=== PATIENT | male | born 1995 | race Hispanic/Latino ===

== ENCOUNTER 2017-12-15 09:30 | Emergency (ER) | payer SELFPAY | END 2017-12-15 10:13 | disposition home or self-care (01) | LOC: EDH 09:30 | DX: S40.011A Contusion of right shoulder, initial encounter (principal); X58.XXXA Exposure to other specified factors, initial encounter; Y93.89 Activity, other specified; Y92.89 Other specified places as the place of occurrence of the external cause; Y99.8 Other external cause status | CPT/HCPCS: 99281 ==

== ENCOUNTER 2021-04-14 00:08 | Emergency (ER) | payer OTHER ==
[~2021-04-14] VITALS: Ht 172.7 cm; Wt 115.2 kg
[2021-04-14 02:08] VITALS: BP 133/87
[2021-04-14] MEDS ORDERED: CYCL10TA16 PO (02:22)
== END 2021-04-14 02:28 | disposition home or self-care (01) ==
LOC: EDH 00:08
DX: S13.8XXA Sprain of joints and ligaments of other parts of neck, initial encounter (principal); X50.9XXA Other and unspecified overexertion or strenuous movements or postures, initial encounter; Y93.89 Activity, other specified; Y92.89 Other specified places as the place of occurrence of the external cause; Y99.8 Other external cause status
CPT/HCPCS: 72040

== ENCOUNTER 2024-07-18 21:04 | Emergency (ER) | payer SELFPAY ==
[~2024-07-18] VITALS: Ht 172.7 cm; Wt 113.4 kg
[~2024-07-18 21:04] MED LIST: CYCL10TA16 PO
--- NOTE | 2024-07-18 22:10 | NUR ---
PT CARE ASSUMED AT THIS TIME
--- NOTE | 2024-07-18 22:12 | HMCIMG ---
ANKLE COMP 3VWS LT HISTORY: Pain and swelling COMPARISON: None TECHNIQUE: 3 images of the left ankle were obtained. FINDINGS: There is no acute displaced fracture or dislocation. Soft tissue swelling is seen. IMPRESSION: 1. Findings as described above.
[2024-07-18] MEDS: ketOROlac 30MG VIAL (30MG/ML) IM ONE (22:20)
[2024-07-18] MEDS: HYDROcodone/APAP 5/325 1 TAB TABLET PO ONE (22:20)
[2024-07-18] MEDS ORDERED: KETO10TA2 PO (23:13)
--- NOTE | 2024-07-18 23:13 | ERN ---
General Chief Complaint: Ankle Problem Stated Complaint: LEFT ANKLE INJURY Time Seen by MD: 21:05 Time Seen by Midlevel: 21:05 History of Present Illness Allergies: Coded Allergies: No Known Drug Allergies (Unverified Allergy, Unknown, 04/14/21) Home Meds Active Scripts Cyclobenzaprine HCl (Flexeril) 10 Mg Tab, 10 MG PO TIDP PRN for MUSCLE SPASMS, #20 TAB 0 Refills Prov:ROSIE WHITTAKER MD 04/14/21 Past Medical History Past Medical History: No Pertinent History Past Surgical History: None Social History Social History: Other ED Course Orders Procedure Category Date Status Time Hydrocodone/Apap PHA 07/18/24 Complete 5/325 (Jesse 5/325mg) 21:30 Ankle Comp 3vws Lt RAD 07/18/24 Resulted 21:10 Foot Comp 3+Vws Lt RAD 07/18/24 Taken 22:04 Ketorolac PHA 07/18/24 Complete Tromethamine 30mg/Ml 22:30 Morphine 2mg Syg PHA 07/18/24 Transmitted (Morphine 2mg Syg) 23:30 Current Medications Medications (Trade) Dose Ordered Sig/Alma Route PRN Reason Start Time Stop Time Status Last Admin Dose Admin Acetaminophen/ Hydrocodone Bitart (NORco 5/325MG) 1 tab ONCE ONCE PO 07/18/24 21:30 07/18/24 21:31 DC 07/18/24 22:20 Ketorolac Tromethamine (toRADol) 30 mg ONCE ONCE IM 07/18/24 22:30 07/18/24 22:31 DC 07/18/24 22:20 Vital Signs Date Time Temp Pulse Resp B/P (MAP) Pulse Ox O2 Delivery O2 Flow Rate FiO2 07/18/24 22:13 97.9 110 20 146/102 96 Room Air* 0 21 07/18/24 21:05 100.0 122 20 144/102 100 Room Air DX & DISP Disposition: Discharge Departure Impression: Primary Impression: Fracture of fifth metatarsal bone of left foot Condition: Stable Scripts Ketorolac Tromethamine (Ketorolac Tromethamine) 10 Mg Tablet 1 TAB PO TID for pain for 5 Days, #15 TAB 0 Refills Prov: BORA YE 07/18/24 Referrals: SELF,REFERRAL (PCP) GLORIA ANDUJAR MD Time of Disposition: 23:11 I have reviewed the case, and I agree with, Diagnosis and Plan I performed the substantive portion of the visit. I have reviewed and personally made and approve the management plan that is documented in the note by myself or the ZANE. I acknowledge for responsibility for the patient's management plan. BORA YE Jul 18, 2024 23:13
[2024-07-18] MEDS: morPHINE 2 MG SYG IM ONE (23:15)
--- NOTE | 2024-07-18 23:23 | NUR ---
PT PLACED IN BOOT AND CRUTCHES GIVEN AT THIS TIME. PT EDUCATED ON THE USE OF CRUTCHES AT BEDSIDE. PT VERBILIZED UNDERSTANDIG OF EDUCATION.
[2024-07-18 23:52] VITALS: BP 147/94; PULSE 99; RESP 18; TEMP 98; O2SAT 97
--- NOTE | 2024-07-19 09:30 | HMCIMG ---
FOOT COMP 3+VWS LT HISTORY: Pain COMPARISON: None TECHNIQUE: 3 images of left foot were obtained. FINDINGS: Nondisplaced fracture is seen involving the base of the fifth metatarsal bone. No dislocation is seen. Soft tissue swelling is seen. IMPRESSION: 1. Findings as described above.
== END 2024-07-18 23:57 | disposition home or self-care (01) ==
LOC: EDH 21:04
DX: S92.355A Nondisplaced fracture of fifth metatarsal bone, left foot, initial encounter for closed fracture (principal); X58.XXXA Exposure to other specified factors, initial encounter; Y93.89 Activity, other specified; Y92.89 Other specified places as the place of occurrence of the external cause; Y99.8 Other external cause status
CPT/HCPCS: 99284; 73610; 73630; 96372 ×2; J1885; J2270

== ENCOUNTER 2024-10-24 08:12 | Emergency (ER) | payer MEDICAID ==
[~2024-10-24] VITALS: Ht 172.7 cm; Wt 117.9 kg
[~2024-10-24 08:12] MED LIST changes: +KETO10TA2 PO
--- NOTE | 2024-10-24 08:31 | EKG ---
[facility] Test Date: 2024-10-24 Test Time: 08:24:45 Pat Name: DEENA DE LA PAZ Department: ED Room: Gender: [employer] Manager: [id number] : 1995 Requested By: YOLANDA MCDERMOTT Order Number: [id number] Reading MD: Kulwant Yañez Measurements Intervals [place] Rate: 113 P: 31 OR: 160 QRS: -35 QRSD: 110 T: 13 QT: 330 QTc: 454 Interpretive Statements Sinus tachycardia Left axis deviation No previous ECG available for comparison Electronically Signed On 10-25-2024 00:07:26 CDT by Kulwant Yañez Please click the below link to view image of tracing.
[2024-10-24 08:37] LABS: IMMATURE GRANULOCYTE ABSOLUTE 0.05 K/uL (0-1); NUCLEATED RED BLOOD CELLS 0.0 % (0.0-0.19); PLATELET COUNT (AUTO) 262 K/uL (130-400); RED BLOOD CELL COUNT(AUTO) 5.03 MIL/uL (4.50-6.20); RED CELL DISTRIBUTION WIDTH 12.5 % (11.0-15.5); WHITE BLOOD COUNT (AUTO) 11.2 K/uL (4.8-10.8)
[2024-10-24 09:00] LABS: CREATININE 0.7 mg/dL (0.5-1.3); GLOMERULAR FILTR. RATE CALC 127.0 mL/min (>90); GLUCOSE,RANDOM 104.0 mg/dL (70-105); SODIUM SERUM 138.0 mmol/L (136-145); UREA NITROGEN, BLOOD 9.0 mg/dL (7-18)
[2024-10-24 09:05] LABS: CREATINE KINASE, TOTAL 345.0 U/L (21-232)
[2024-10-24] MEDS: 0.9%NACL 1000ML 1,000 ML IV ONE (09:07)
[2024-10-24 09:30] LABS: INFLUENZA TYPE A Negative For Type A (NEGATIVE); INFLUENZA TYPE B Negative For Type B (NEGATIVE)
[2024-10-24 09:39] LABS: COVID19 (SARS ANTIGEN RAPID) POSITIVE FOR SARS AG (NEGATIVE)
[2024-10-24 10:15] LABS: APPEARANCE,URINE CLEAR (CLEAR); GLUCOSE, URINE (UA) NEGATIVE (NEGATIVE); LEUKOCYTE ESTERASE ,URINE NEGATIVE Leu/uL (NEGATIVE); NITRATE,URINE NEGATIVE (NEGATIVE); OCCULT BLOOD,URINE NEGATIVE (NEGATIVE)
[2024-10-24 10:16] LABS: ADD UA MICROSCOPIC NO
--- NOTE | 2024-10-24 10:46 | ERN ---
ED Note History of Present Illness Stated Complaint: JAW PAIN, FEVER Chief Complaint: Fever Time Seen by MD: 08:47 Dictation: 29-year-old male with fever cough cold congestion and jaw pain over the past few days. Patient reports general body aches no chest pain or shortness of breath. Allergies: Coded Allergies: No Known Drug Allergies (Unverified Allergy, Unknown, 04/14/21) Home Meds Active Scripts Ketorolac Tromethamine (Ketorolac Tromethamine) 10 Mg Tablet, 1 TAB PO TID for pain for 5 Days, #15 TAB 0 Refills Prov:BORA YE 07/18/24 Cyclobenzaprine HCl (Flexeril) 10 Mg Tab, 10 MG PO TIDP PRN for MUSCLE SPASMS, #20 TAB 0 Refills Prov:ROSIE WHITTAKER MD 04/14/21 Past Medical History Past Medical History: No Pertinent History Surgical History: Other Surgical History Other: FOOT Social History: Other Review of System Dictation Constitutional per HPI Eyes: Negative for injury, pain,redness, and discharge ENT: Per HPI Cardiovascular: Negative for chest pain, palpitations, and edema Respiratory: Negative for shortness of breath, cough, and wheezing, Abdomen/GI: Negative for abdominal pain, nausea, vomiting, diarrhea, and constipation Back: Negative for injury and pain : Negative for injury, bleeding and discharge MS/Extremity: Negative for injury and deformity Skin: Negative for rash, and discoloration Neuro: Negative for headache, weakness, numbness, tingling, and seizure Psych: Negative for suicide ideation, homicidal ideation, and hallucinations Initial Vital Sign VS Vital Signs Date Time Temp Pulse Resp B/P (MAP) Pulse Ox O2 Delivery O2 Flow Rate FiO2 10/24/24 08:15 100.9 113 20 146/93 96 Room Air 0 10/24/24 08:32 21 Physical Exam Dictation General: awake, alert, NAD, febrile Head/Face: Normocephalic, atraumatic Eyes: PERRL, EOMI, vision at baseline ENT: oral cavity clear, TMs clear, no signs of infection Neck: Trachea midline, supple, no nuchal rigidity Cardiovascular: RRR, normal S1/S2, No MRGs, no JVD Respiratory: CTAB, no respiratory distress, No rales or wheezes Abdomen: Soft, non-tender, non-distended, normal bowel sounds, no guarding or rebound. Skin: Warm, dry, normal turgor, no rash MS/Extremity: Pulses equal, no cyanosis, neurovascular intact, FROM Neuro: COAx4, GCS 15, strength 5/5, CN 2-12 intact, normal cerebellar exam, normal gait, Psych: Normal behavior, mood, and affect normal Results (Laboratory/Radiology) Laboratory/Radiology Laboratory Tests Test 10/24/24 08:25 10/24/24 09:01 10/24/24 09:47 White Blood Count 11.2 K/uL (4.8-10.8) H Red Blood Count 5.03 MIL/uL (4.50-6.20) Hemoglobin 15.0 g/dL (14.0-18.0) Hematocrit 44.0 % (42-54) Mean Corpuscular Volume 87.5 fL (79-99) Mean Corpuscular Hemoglobin 29.8 pg (27.0-33.0) Mean Corpuscular Hemoglobin Concent 34.1 g/dL (32.0-36.0) Red Cell Distribution Width 12.5 % (11.0-15.5) Platelet Count 262 K/uL (130-400) Mean Platelet Volume 9.2 fL (7.5-10.5) Immature Granulocyte % (Auto) 0.4 % (0-1) Neutrophils (%) (Auto) 88.0 % (40.0-77.0) H Lymphocytes (%) (Auto) 5.1 % (21.0-51.0) L Monocytes (%) (Auto) 5.9 % (3.0-13.0) Eosinophils (%) (Auto) 0.4 % (0.0-8.0) Basophils (%) (Auto) 0.2 % (0.0-5.0) Neutrophils # (Auto) 9.8 K/uL (1.8-7.7) H Lymphocytes # (Auto) 0.6 K/uL (1.0-4.8) L Monocytes # (Auto) 0.7 K/uL (0.1-1.0) Eosinophils # (Auto) 0.05 K/uL (0.00-0.70) Basophils # (Auto) 0.02 K/uL (0.00-0.20) Absolute Immature Granulocyte (auto 0.05 K/uL (0-1) Nucleated Red Blood Cells 0.0 % (0.0-0.19) White Cell Morphology Comment See comments Sodium Level 138 mmol/L (136-145) Potassium Level 3.7 mmol/L (3.5-5.1) Chloride Level 101 mmol/L (101-111) Carbon Dioxide Level 30 mmol/L (21-32) Blood Urea Nitrogen 9 mg/dL (7-18) Creatinine 0.7 mg/dL (0.5-1.3) Glomerular Filtration Rate Calc 127 mL/min (>90) Random Glucose 104 mg/dL (70-105) Lactic Acid Level 1.6 mmol/L (0.8-2.5) Total Calcium 9.0 mg/dL (8.5-10.1) Total Creatine Kinase 345 U/L (21-232) H Troponin I High Sensitivity 4 ng/L (4-75) Influenza Type A Antigen Negative For Type A Influenza Type B Antigen Negative For Type B SARS-CoV-2 Antigen (Rapid) POSITIVE FOR SARS AG Urine Color LIGHT-YELLOW (YELLOW) Urine Appearance CLEAR (CLEAR) Urine pH 6.0 (5.0-8.0) Urine Specific [place] 1.023 (1.001-1.031) Urine Protein NEGATIVE mg/dL (NEGATIVE) Urine Glucose (UA) NEGATIVE mg/dL (NEGATIVE) Urine Ketones NEGATIVE mg/dL (NEGATIVE) Urine Occult Blood NEGATIVE (NEGATIVE) Urine Nitrate NEGATIVE (NEGATIVE) Urine Bilirubin NEGATIVE mg/dL (NEGATIVE) Urine Urobilinogen 0.2 mg/dL (0.2-1.0) Urine Leukocyte Esterase NEGATIVE Herbert/uL Labs Reviewed?: Yes ED Course ED Course Orders Procedure Category Date Status Time Iv Insertion CPOE 10/24/24 Transmitted 08:19 Pulse Ox(Continuous) RT 10/24/24 Transmitted 08:19 Vital Signs Per CPOE 10/24/24 Transmitted Routine 08:19 12 Lead Ekg Tracing- EKG 10/24/24 Complete Technical 08:19 Cbc With Differential LAB 10/24/24 Complete 08:19 Blood Cult BO 10/24/24 In Process 08:19 Urinalysis Profile LAB 10/24/24 Complete 08:19 Culture Urine BO 10/24/24 In Process 08:19 Creatine Kinase, Total LAB 10/24/24 Complete 08:19 Troponin I High LAB 10/24/24 Complete Sensitivity 08:19 Lactic Acid LAB 10/24/24 Complete 08:19 Basic Metabolic Panel LAB 10/24/24 Complete 08:19 Ketorolac PHA 10/24/24 Complete Tromethamine 15mg/Ml 09:00 Ceftriaxone 2gm Vial PHA 10/24/24 Complete (Rocephin 2gm Inj) 09:00 0.9%Nacl 1000ml (Ns PHA 10/24/24 Complete 1000ml) 09:00 Covid19 (Sars Antigen LAB 10/24/24 Complete Rapid) 08:58 Influenza Type A & B, LAB 10/24/24 Complete Rapid 08:58 Current Medications Medications (Trade) Dose Ordered Sig/Alma Route PRN Reason Start Time Stop Time Status Last Admin Dose Admin Ceftriaxone Sodium (Rocephin 2gm Inj) 2 gm ONCE ONCE IVPB 10/24/24 09:00 10/24/24 09:02 DC 10/24/24 09:07 Ketorolac Tromethamine (toRADol) 15 mg ONCE ONCE IV 10/24/24 09:00 10/24/24 09:02 DC 10/24/24 09:07 Sodium Chloride 1,000 ml @ 0 mls/hr ONCE ONCE IV 10/24/24 09:00 10/24/24 09:02 DC 10/24/24 09:07 Vital Signs Date Time Temp Pulse Resp B/P (MAP) Pulse Ox O2 Delivery O2 Flow Rate FiO2 10/24/24 09:35 99.3 87 12 125/69 97 Room Air* 0 21 10/24/24 08:32 113 18 148/88 96 Room Air* 0 21 10/24/24 08:15 100.9 113 20 146/93 96 Room Air 0 Medical Decision Making MDM MDM: Differential diagnosis: Rationale: Tests considered and ordered secondary to shared decision making include: Previous outside records reviewed: Old ER visits. Risk of complication and/or morbidity or mortality of patient management: None Medications-Per medication reconciliation Need for hospitalization: Patient does not meet criteria for hospitalization. Need for emergency major/minor surgery: No There are no social concerns with this patient. Prescription drug management Prescriptions will include symptomatic care Patient's prior external medical records from other ER visits were reviewed by me as indicated. Prior testing and results from previous visits were reviewed. Prior tests were taken into account with medical decision making and resource utilization, independent historian/historians were used to obtain complete medical history. I independently interpreted the test that were performed, results were reviewed by me and considered findings on radiology if ordered. Medical management and examination interpretation discussions were had by me with other qualified healthcare professionals as indicated for the patient's care. 29-year-old male URI and COVID-19, vitals all stable oxygenating well chest x- ray clear stable for discharge with symptomatic care for URI type symptoms. DX & DISP Disposition: Discharge Departure Impression: Primary Impression: COVID-19 Condition: Stable Referrals: SHAKIR BARRON DO (PCP) YOLANDA MCDERMOTT MD Oct 24, 2024 10:46
[2024-10-24 11:03] VITALS: BP 133/68; PULSE 88; RESP 14; TEMP 99.4; O2SAT 97
== END 2024-10-24 11:20 | disposition home or self-care (01) ==
LOC: EDH 08:12
DX: U07.1 COVID-19 (principal); Z79.899 Other long term (current) drug therapy
CPT/HCPCS: 99284; 96374; 96375; 87426; 82550; 84484; 80048; 85025; 87040 ×2; 87086; 87804 ×2; 83605; 81003; 36415; 93005; J1885; J0696

== ENCOUNTER 2025-03-02 17:40 | Emergency (ER) | payer MEDICAID ==
[~2025-03-02] VITALS: Ht 172.7 cm; Wt 120.2 kg
--- NOTE | 2025-03-02 18:13 | ERN ---
ED Note History of Present Illness Stated Complaint: FOOT PAIN Chief Complaint: FOOT INJURY/PAIN Time Seen by MD: 17:42 Time Seen by Midlevel: 17:42 Dictation: The patient is a 29-year-old male with history of left foot surgery who presents to the emergency department with complains of non traumatic left foot pain onset 4 days ago. Patient repots pain to plantar region. Allergies: Coded Allergies: No Known Drug Allergies (Unverified Allergy, Unknown, 04/14/21) Home Meds Active Scripts Ibuprofen (Ibuprofen) 600 Mg Tablet, 1 TAB PO TID for pain for 10 Days, #30 TAB 0 Refills with food Prov:AL RODARTE BASKETBALL COMMENTATOR 03/02/25 Ketorolac Tromethamine (Ketorolac Tromethamine) 10 Mg Tablet, 1 TAB PO TID for pain for 5 Days, #15 TAB 0 Refills Prov:BORA YE PAC 07/18/24 Cyclobenzaprine HCl (Flexeril) 10 Mg Tab, 10 MG PO TIDP PRN for MUSCLE SPASMS, #20 TAB 0 Refills Prov:ROSIE WHITTAKER MD 04/14/21 Past Medical History Past Medical History: No Pertinent History Surgical History: Other Surgical History Other: LT FOOT SX Social History: Other RN Note Reviewed/Agreed w/PFSH: Yes Review of System Dictation Constitutional: Negative for fever,chills, and weight loss Eyes: Negative for injury, pain,redness, and discharge ENT: Negative for injury,pain or swelling Cardiovascular: Negative for chest pain, palpitations, and edema Respiratory: Negative for shortness of breath, cough, and wheezing, Abdomen/GI: Negative for abdominal pain, nausea, vomiting, diarrhea, and constipation Back: Negative for injury and pain : Negative for injury, bleeding and discharge MS/Extremity: Negative for injury and deformity Skin: Negative for rash, and discoloration Neuro: Negative for headache, weakness, numbness, tingling, and seizure Psych: Negative for suicide ideation, homicidal ideation, and hallucinations Initial Vital Sign VS Vital Signs Date Time Temp Pulse Resp B/P (MAP) Pulse Ox O2 Delivery O2 Flow Rate FiO2 03/02/25 17:41 98.1 110 18 134/89 99 Room Air 0 03/02/25 20:40 21 Physical Exam Dictation Vital Signs reviewed General Appearance: Alert, oriented x 3, no acute distress, well developed, nourished. Head and Face: non-traumatic. Eyes: PERRL, pink conjunctivas, eyelid no trauma, anterior chamber with arcus senilis. Ears: Pinnas intact and no signs of trauma or erythema ear canals clear and no discharge TM no erythema Nose: No discharge, no bleeding. Oropharynx: Mouth normal, tongue pink. pharynx clear,no erythema, tonsils no exudates, no abscesses noted, mucous membrane moist Neck: Supple, non-tender, no thyromegaly, no masses, no JVD, no bruits Breast:Deferred Chest:No tenderness, no crepitus, no paradoxical movement, no retractions Lungs:Clear, well-ventilated, symmetric, no rales, no wheezing, no rhonchi, no stridor, good breath sounds bilaterally Heart: Regular rate, regular rhythm, no murmur, no gallops Vascular: dorsalis pedis 3+ bilaterally Abdomen: Soft, positive bowel sounds, nondistended, no guarding, nontender, no rebound, no masses no hepatomegaly, no splenomegaly, no Banegas's sign, no hernias. Rectal: Deferred Genital: Deferred Neurological: Normal speech, motor function intact, sensory function intact Musculoskeletal: Neck nontender, full range of motion, back nontender, full r chet of motion, Extremities: nontender, full range of motion , plant tenderness, no open wounds, no erythema. Skin: Color pink, dry, no turgor, no rash, no lacerations, no abrasions, no contusions. Lymphatic: Deferred Results (Laboratory/Radiology) Laboratory/Radiology REASON: pain ORDERING PHYSICIAN: AL RODARTE BASKETBALL COMMENTATOR PROCEDURE: FT 3VW LT - FOOT COMP 3+VWS LT EXAM: CR Left Foot, 3 views. CLINICAL HISTORY: Pain. COMPARISON: Radiograph of the left foot dated 07/18/2024. FINDINGS: Internally fixed healing fracture around the fifth metatarsal base with the fixating screw in place. No acute fracture or aggressive osseous lesion is evident. The joint spaces are maintained. Hammertoe deformities in the 2nd through 5th toes. Diffuse soft tissue swelling. IMPRESSION: Internally fixed healing fracture around the fifth metatarsal base with the fixating screw in place. No acute fracture or aggressive osseous lesion is evident. Compared to the previous radiograph dated 07/18/2024, there are interval postsurgical changes and healing in the fifth metatarsal fracture. The remaining findings are unchanged. /[place] Labs Reviewed?: Yes ED Course ED Course Orders Procedure Category Date Status Time Foot Comp 3+Vws Lt RAD 03/02/25 Taken 17:44 Ketorolac 60mg/2ml PHA 03/02/25 Complete (Toradol 60mg/2ml) 18:00 Current Medications Medications (Trade) Dose Ordered Sig/Alma Route PRN Reason Start Time Stop Time Status Last Admin Dose Admin Ketorolac Tromethamine (toRADol 60MG/ 2ML) 60 mg ONCE ONCE IM 03/02/25 18:00 03/02/25 18:01 DC 03/02/25 19:23 Vital Signs Date Time Temp Pulse Resp B/P (MAP) Pulse Ox O2 Delivery O2 Flow Rate FiO2 03/02/25 20:40 98.2 90 18 140/90 97 Room Air* 0 21 03/02/25 17:41 98.1 110 18 134/89 99 Room Air 0 Medical Decision Making MDM The patient is a 29-year-old male with history of left foot surgery who presents to the emergency department with complains of non traumatic left foot pain onset 4 days ago. Patient repots pain to plantar region. Xray did not show any acute fractures, aida looks at an appropriate placement. Patient with no open wounds. neurovascular intact. Patient reports his job requires him to be on his foot for long periods of time. Pain could be due to plantar fasciitis. Patient instructed to follow up with . Differential diagnosis: plantar fasciitis , foot fracture, aida malfunction. Need for hospitalization: Patient does not meet criteria for hospitalization. There are no social concerns with this patient. DX & DISP Disposition: Discharge Departure Impression: Primary Impression: Left foot pain Condition: Stable Scripts Ibuprofen (Ibuprofen) 600 Mg Tablet 1 TAB PO TID for pain for 10 Days, #30 TAB 0 Refills with food Prov: AL RODARTE BASKETBALL COMMENTATOR 03/02/25 Additional Instructions: Your Xray did not show any acute fractures. Make sure you wear comfortable shoes with good bola. Follow up with ortho and follow up with your PCP in 1-2 days. If anything worsens please return to ER. FOLLOW-UP WITH PRIMARY CARE PROVIDER IN 1 TO 2 DAYS. TAKE MEDICATIONS DIRECTED HERE IN THE EMERGENCY ROOM. OKAY TO CONTINUE HOME MEDICATIONS UNLESS OTHERWISE DISCUSSED DURING YOUR VISIT IN THE EMERGENCY ROOM TODAY. RETURN TO YOUR NEAREST EMERGENCY ROOM IF SYMPTOMS WORSEN OR IF THERE IS NO IMPROVEMENT. CALL 911 IF YOU NEED IMMEDIATE ASSISTANCE. TAKE TYLENOL BLVU-GUS-EOPRSIV NEEDED AND IF NO CONTRAINDICATIONS ARE PRESENT. INCREASE ORAL HYDRATION. A WOUND CULTURE OR URINE CULTURE WAS ORDERED HERE IN THE EMERGENCY ROOM DEPARTMENT PLEASE FOLLOW-UP WITH PRIMARY CARE PROVIDER AND ADVISE THEM TO GET REPEAT PORTS FROM OUR FACILITY. IF YOU HAD ANY DEBBIE WRAP/SPLINTS THAT WERE APPLIED HERE, PLEASE DO NOT REMOVE THEM UNTIL YOU SEE YOUR PRIMARY CARE OR SPECIALTY. Referrals: SHAKIR BARRON DO (PCP) Time of Disposition: 20:19 I have reviewed the case, and I agree with, Diagnosis and Plan DEJON MONDRAGON MD Mar 02, 2025 18:13 AL RODARTE Mar 02, 2025 18:49
[2025-03-02 20:40] VITALS: BP 140/90; PULSE 90; RESP 18; TEMP 98.3; O2SAT 97
--- NOTE | 2025-03-02 21:04 | HMCIMG ---
EXAM: CR Left Foot, 3 views. CLINICAL HISTORY: Pain. COMPARISON: Radiograph of the left foot dated 07/18/2024. FINDINGS: Internally fixed healing fracture around the fifth metatarsal base with the fixating screw in place. No acute fracture or aggressive osseous lesion is evident. The joint spaces are maintained. Hammertoe deformities in the 2nd through 5th toes. Diffuse soft tissue swelling. IMPRESSION: Internally fixed healing fracture around the fifth metatarsal base with the fixating screw in place. No acute fracture or aggressive osseous lesion is evident. Compared to the previous radiograph dated 07/18/2024, there are interval postsurgical changes and healing in the fifth metatarsal fracture. The remaining findings are unchanged. /[place]
== END 2025-03-02 20:41 | disposition home or self-care (01) ==
LOC: EDH 17:40
DX: M79.672 Pain in left foot (principal); Z79.1 Long term (current) use of non-steroidal anti-inflammatories (NSAID)
CPT/HCPCS: 99283; 73630; 96372; J1885 ×2